=== PATIENT | female | born 1975 | race Caucasian/White ===

== ENCOUNTER 2017-04-09 11:35 | Emergency (ER) | payer OTHER | END 2017-04-09 12:26 | disposition home or self-care (01) | LOC: ER1 11:35 | DX: J02.9 Acute pharyngitis, unspecified (principal); Z88.0 Allergy status to penicillin | CPT/HCPCS: 87081; 87880; 99283 ==

== ENCOUNTER → 2022-01-19 | Outpatient (CLI) | payer OTHER | LOC: KOH-I 16:04 | DX: S82.451A Displaced comminuted fracture of shaft of right fibula, initial encounter for closed fracture (principal) | CPT/HCPCS: 73610 ==

== ENCOUNTER → 2022-02-09 | Outpatient (CLI) | payer OTHER | LOC: KOH-I 15:29 | DX: S82.61XD Displaced fracture of lateral malleolus of right fibula, subsequent encounter for closed fracture with routine healing (principal); X58.XXXD Exposure to other specified factors, subsequent encounter | CPT/HCPCS: 73610 ==

== ENCOUNTER → 2022-03-12 | Outpatient (CLI) | payer OTHER | LOC: KOH-I 15:49 | DX: S82.831A Other fracture of upper and lower end of right fibula, initial encounter for closed fracture (principal); X58.XXXA Exposure to other specified factors, initial encounter | CPT/HCPCS: 73610 ==

== ENCOUNTER → 2022-04-13 | Outpatient (CLI) | payer OTHER | LOC: KOH-I 15:47 | DX: S82.831G Other fracture of upper and lower end of right fibula, subsequent encounter for closed fracture with delayed healing (principal) | CPT/HCPCS: 73610 ==

== ENCOUNTER → 2022-05-18 | Outpatient (CLI) | payer OTHER | LOC: KOH-I 15:34 | DX: S82.831G Other fracture of upper and lower end of right fibula, subsequent encounter for closed fracture with delayed healing (principal) | CPT/HCPCS: 73610 ==

== ENCOUNTER → 2022-06-22 | Outpatient (CLI) | payer OTHER | LOC: KOH-I 15:47 | DX: S82.831D Other fracture of upper and lower end of right fibula, subsequent encounter for closed fracture with routine healing (principal) | CPT/HCPCS: 73610 ==

== ENCOUNTER → 2022-08-03 | Outpatient (CLI) | payer OTHER | LOC: KOH-I 15:49 | DX: S82.831D Other fracture of upper and lower end of right fibula, subsequent encounter for closed fracture with routine healing (principal); X58.XXXD Exposure to other specified factors, subsequent encounter | CPT/HCPCS: 73610 ==